=== PATIENT | female | born 1975 | race Caucasian/White ===

== ENCOUNTER 2017-12-23 07:06 | Day surgery (SDC) | payer BC ==
[~2017-12-23 07:06] MED LIST: CEFAZOLIN 2 GM/50 ML (PMX) 50 ML IVPB; SOD CHLORIDE 0.9% 1,000 ML IV
[2017-12-23] MEDS ORDERED: LIDOCAINE 100 MG SYRINGE (08:11)
[2017-12-23] MEDS ORDERED: PROPOFOL 20 ML (08:11)
[2017-12-23] MEDS ORDERED: FENTAnyl 50 MCG/ML VIAL (08:12)
[2017-12-23] MEDS ORDERED: MIDAZOLAM 1 MG/ML 2 ML INJ (08:12)
[2017-12-23 08:22] LABS: ADD MAN DIFF? NO
[2017-12-23 08:38] LABS: BASOPHILS % 0.5 % (0.0-2.0); EOSINOPHILS # 0.1 10^3/ul (0.0-0.5); EOSINOPHILS % 1.3 % (0.0-7.0); HEMOGLOBIN 11.4 g/dl (12.0-16.0); LYMPHOCYTES # 1.8 10^3/ul (0.8-2.9); LYMPHOCYTES % 33.1 % (15.0-51.0); MEAN CORPUSCULAR HEMOGLOBIN 27.1 pg (29.0-33.0); MEAN CORPUSCULAR HGB CONC 32.6 g/dl (32.0-37.0); MEAN CORPUSCULAR VOLUME 83.1 fl (82.0-101.0); MEAN PLATELET VOLUME 9.9 fl (7.4-10.4); MONOCYTE # 0.5 10^3/ul (0.3-0.9); MONOCYTES % 8.8 % (0.0-11.0); NEUTROPHIL # 3.1 10^3/ul (1.6-7.5); NEUTROPHILS % 56.1 % (39.0-77.0); PLATELET COUNT 286 10^3/UL (140-415); RED BLOOD COUNT 4.21 10^6/ul (4.20-5.40); RED CELL DISTRIBUTION WIDTH 15.8 % (11.5-14.5)
[2017-12-23 08:38] LABS: WHITE BLOOD COUNT 5.6 10^3/ul (4.8-10.8)
[2017-12-23] MEDS ORDERED: BUPIVACAINE 0.25% (MPF) 30 ML INJ (08:44)
[2017-12-23 08:53] LABS: ALANINE AMINOTRANSFERASE 27 IU/L (13-69); ALBUMIN 3.9 g/dl (3.3-4.9); ALBUMIN/GLOBULIN RATIO 1.25; ALKALINE PHOSPHATASE 59 IU/L (42-121); ANION GAP 14 (8-16); ASPARTATE AMINO TRANSFERASE 22 IU/L (15-46); BILIRUBIN,INDIRECT 0.2 mg/dl (0-1.1); BILIRUBIN,TOTAL 0.2 mg/dl (0.2-1.3); CARBON DIOXIDE 26 mmol/L (21-31); CHLORIDE 107 mmol/L (97-110); GLUCOSE 79 mg/dl (70-220)
[2017-12-23 08:54] LABS: BLOOD UREA NITROGEN 12 mg/dl (7-20); POTASSIUM 3.7 mmol/L (3.5-5.1); SODIUM 143 mmol/L (135-144)
[2017-12-23 08:55] LABS: CALCIUM 8.7 mg/dl (8.4-10.2); CREATININE 0.72 mg/dl (0.44-1.00); INR 0.98; PROTIME 13.1 Sec (11.9-14.9)
[2017-12-23 08:56] LABS: PARTIAL THROMBOPLASTIN TIME 32.4 Sec (25.0-35.0)
[2017-12-23] MEDS ORDERED: METOCLOPRAMIDE 10 MG INJ IV (09:00)
[2017-12-23] MEDS ORDERED: OXYCODONE/ACETAMINOPHEN (5/325) TAB PO ×2 (09:00)
[2017-12-23] MEDS ORDERED: FENTAnyl 50 MCG/ML VIAL IV ×3 (09:00)
[2017-12-23] MEDS ORDERED: ALBUTEROL 0.083% (NEB) 2.5 MG/3 ML AMP HHN (09:00)
[2017-12-23] MEDS ORDERED: ONDANSETRON 4 MG INJ (09:34)
[2017-12-23] MEDS ORDERED: DEXAMETHASONE 4 MG/ML 1 ML INJ (09:34)
[2017-12-23] MEDS ORDERED: FAMOTIDINE 20 MG INJ (09:34)
[2017-12-23] MEDS ORDERED: METOCLOPRAMIDE 10 MG INJ (09:34)
[2017-12-23] MEDS ORDERED: CEFAZOLIN 1 GM INJ (09:34)
[2017-12-23] MEDS: BUPIVACAINE 0.25%/EPI (SDV) 30 ML INJ INJ (09:44)
[2017-12-23] MEDS: MEPERIDINE 25 MG INJ IV (10:29)
[2017-12-23] MEDS: ONDANSETRON 4 MG INJ IV (10:29)
[2017-12-23] MEDS: HYDROCODONE/APAP (5/325) TAB PO (11:16)
== END 2017-12-23 13:40 | disposition home or self-care (01) ==
LOC: SDS 07:06
DX: N62 Hypertrophy of breast (principal); E03.9 Hypothyroidism, unspecified
CPT/HCPCS: 14000; 80053; 84703; 85025; 85610; 85730; 88307